=== PATIENT | female | born 1970 | race Two or more races ===

== ENCOUNTER 2019-03-16 11:27 | Inpatient (IN) | payer OTHER ==
[~2019-03-16] VITALS: Ht 167.6 cm; Wt 66.2 kg
--- NOTE | 2019-03-16 11:45 | NUR ---
SE RECIBE PACIENTE ALERTA Y ORIENTADA EN LAS AKDEN ESFERAS. LA MISMA VERBALIZA SANGRADO VAGINAL NO ABUNDANTE DESDE SYD EN LA NOCHE.
--- NOTE | 2019-03-16 12:56 | NUR ---
PACIENTE ALERTA Y ORIENTADA POR KADEN ESFERAS. MS, GRIFFITH ORIENTA A PACIENTE SOBRE PROCEDIMIENTO, REFIERE ENTENDER. EXTRAE MUESTRAS DE LABORATORIO CON MEDIDAS ASEPTICAS Y ENVIA AL MISMO.
[2019-03-19] MEDS ORDERED: LOW-OGESTREL-21 EACH PO (08:31)
[2019-03-19] MEDS ORDERED: INTEGRA PLUS C1 EACH PO (08:31)
== END 2019-03-19 09:32 | disposition home or self-care (01) | DRG 760 ==
LOC: ER 11:27 → OB/GYN 14:29
PROVIDERS: ADMIT Obstetrics & Gynecology
PROC: 30233N1 Transfusion of Nonautologous Red Blood Cells into Peripheral Vein, Percutaneous Approach (ICD-10-PCS; principal; 2019-03-16)
PROC: BU46ZZZ Ultrasonography of Uterus (ICD-10-PCS; 2019-03-16)
DX: N92.4 Excessive bleeding in the premenopausal period (principal); D62 Acute posthemorrhagic anemia; D25.1 Intramural leiomyoma of uterus

== ENCOUNTER 2019-04-07 05:56 | Day surgery (SDC) | payer OTHER ==
[~2019-04-07] VITALS: Ht 170.2 cm; Wt 66.7 kg
[~2019-04-07 05:56] MED LIST: INTEGRA PLUS C1 EACH PO; LOW-OGESTREL-21 EACH PO
[2019-04-08] MEDS ORDERED: MORGIDOX100 MG PO (08:39)
== END 2019-04-08 08:00 | disposition home or self-care (01) ==
LOC: CIR.AMB 05:56 → O/R 16:26 → CIR.AMB 16:26 → OB/GYN 17:08 → O/R 17:08 → CIR.AMB 04-08 08:00 → OB/GYN 04-08 10:39 → O/R 04-08 10:39
DX: D25.0 Submucous leiomyoma of uterus (principal); N84.0 Polyp of corpus uteri; N93.8 Other specified abnormal uterine and vaginal bleeding

== ENCOUNTER 2021-01-04 20:50 | Emergency (ER) | payer OTHER ==
[~2021-01-04] VITALS: Ht 167.6 cm; Wt 68.9 kg
[~2021-01-04 20:50] MED LIST changes: +MORGIDOX100 MG PO
[2021-01-05] MEDS ORDERED: ORPHENADRINE C100 MG PO (00:59)
[2021-01-05] MEDS ORDERED: MEDROLPACK PO (00:59)
== END 2021-01-05 01:16 ==
LOC: ER 20:50
DX: R05 Cough (principal)